=== PATIENT | female | born 1980 | race Caucasian/White ===

== ENCOUNTER → 2017-01-30 | Outpatient (CLI) | payer MEDICAID, OTHER ==
--- NOTE | 2017-01-30 11:03 | XR ---
EXAMINATION TYPE: XR cervical spine w flex/ext DATE OF EXAM: 01/30/2017 TECHNIQUE: Frontal, lateral, oblique, dynamic flexion and extension lateral, and open mouth view of t he cervical spine are obtained. 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 COMPARISON: MRI cervical spine February 27, 2013 FINDINGS: The cervical spine is visualized in its entirety from C1 thru the top of T1 level, some lo ss of normal cervical curvature is redemonstrated without evidence of acute fracture or dislocation. The pre-vertebral soft tissue remains within normal limits. The C1-C2 articulation is within normal limits on the open mouth view. Surgical clips from prior surgery near cranial cervical junction is identified. There is persistent m ild disc space narrowing C2-C3 and C7-T1 levels. Vertebral body heights and disc space heights otherw ise are maintained. No significant spurring is seen. Dynamic images show satisfactory flexion and ext ension without focal subluxation or increasing disc space narrowing identified The oblique images are within normal limits. IMPRESSION: Mild disc space narrowing C2-C3 and C7-T1 levels redemonstrated.
== END | disposition home or self-care (01) ==
LOC: RADXRMAIN 10:35
PROVIDERS: ATTEND Neurological Surgery
DX: M48.02 Spinal stenosis, cervical region (principal)
CPT/HCPCS: 72052

== ENCOUNTER → 2017-02-04 | Outpatient (CLI) | payer OTHER ==
--- NOTE | 2017-02-04 22:34 | MR ---
EXAMINATION TYPE: MR brain/cspine wo DATE OF EXAM: 02/04/2017 COMPARISON: Prior outside brain and cervical spine MRI July 09, 2014. Outside report not availabl e for comparison time of dictation. 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 Headaches with pain and tingling sensation into both hands per patient. TECHNIQUE: Multiplanar, multisequence imaging of the cervical spine, brain, and brainstem are all per formed without IV contrast. FINDINGS: BRAIN: Diffusion weighted images demonstrate no evidence of a recent infarct or other diffusion abnormality. There is no extraaxial fluid collection or significant white matter signal abnormality. The ventricu lar system and cisternal spaces are normal in size and appearance. The brain volume is age appropria te. Midline structures demonstrate normal morphology. Craniocervical junction is maintained after surgery . The craniocervical junction appears within normal limits. Artifact likely from prior posterior dec ompression surgery left of midline occipital region on axial image 8 is redemonstrated. Surgical perez ge inferior to this is seen better on prior outside MRI. Normal vascular flow voids are present. The visualized sinuses are clear and the globes are intact. IMPRESSION: No suspicious new finding is seen to account for patient's symptoms. Postsurgical change s from Chiari one surgical correction are redemonstrated. C-SPINE: FINDINGS: Sagittal images of the cervical spine show the craniocervical junction to appear within nor mal limits. Small fluid collection posterior to foramen magnum on sagittal image 9 is diminished in s ize from prior. The cervical and upper thoracic spinal cord is normal in course, caliber, and signal . Vertebral alignment is anatomic. The vertebral body and intravertebral disk heights are normal. S mall posterior disc herniation C4-C5 level as seen on sagittal images. The bone marrow signal intensi ty is within normal limits. Small hemangioma seen at superior T1 endplate. Spurring is seen. Axial images show the C2-C3 and C3-C4 levels to appear within normal limits. Axial images C4-C5 level show broad-based posterior disc protrusion effacing anterior thecal sac on a xial image 28, bilateral neural foramina are patent. Finding is new or more prominent from prior stud y. Axial images at C5-C6 level show smaller central disc protrusion mildly effacing anterior thecal sac on axial image 22, bilateral neural foramina are patent. Axial images at C6-C7 and C7-T1 levels are felt within normal limits. There is heterogeneous appearance to the thyroid with tiny T2 hyperintense lesions appreciated bilate rally felt to reflect small solid or cystic nodules measuring 5 mm or smaller in size. This can BE co rrelated with thyroid ultrasound if desired. IMPRESSION: Successful surgical change related to posterior Chiari decompression is redemonstrated. New central disc herniation C4-C5 level is noted.
== END | disposition home or self-care (01) ==
LOC: RADMRIMAIN 20:26
PROVIDERS: ATTEND Neurological Surgery
DX: M50.221 Other cervical disc displacement at C4-C5 level (principal); Q07.9 Congenital malformation of nervous system, unspecified; R51 Headache
CPT/HCPCS: 70551; 72141